=== PATIENT | female | born 1955 | race Caucasian/White ===

== ENCOUNTER 2017-03-30 17:38 | Emergency (ER) | payer OTHER ==
[~2017-03-30] VITALS: Ht 162.6 cm; Wt 83.9 kg
--- NOTE | 2017-03-30 19:10 | EKG ---
[facility] [address] [facility] [place] [address] Signed Normal sinus rhythm Normal ECG No previous ECGs available Confirmed by CRISTIAN MIR MD ([id number]) on 03/30/2017 7:09:50 PM Electronically Signed By: CRISTIAN MIR MD 03/30/171909 PATIENT NAME: MALINA MCDANIEL Electrocardiogram DATE OF : 51 PHYSICIAN: CRISTIAN MIR MD REPORT #: [id number] REPORT IS CONFIDENTIAL AND NOT TO BE RELEASED WITHOUT AUTHORIZATION
== END 2017-03-31 04:25 | disposition home or self-care (01) ==
LOC: ED 17:38
DX: D64.9 Anemia, unspecified (principal); D61.818 Other pancytopenia; F17.200 Nicotine dependence, unspecified, uncomplicated; Z90.49 Acquired absence of other specified parts of digestive tract; Z79.899 Other long term (current) drug therapy
CPT/HCPCS: 36430; 71020; 80053; 82607; 82728; 82746; 83540; 83615; 84466; 84484; 85025; 85045; 85384; 85610; 85730; 86850; 86900; 86901; 86920; 93005; 93010; 96374; 96376; 99284; P9016

== ENCOUNTER 2019-07-19 09:54 | Emergency (ER) | payer MEDICARE, OTHER ==
[~2019-07-19] VITALS: Ht 162.6 cm; Wt 63.5 kg
[~2019-07-19 09:54] MED LIST: ACYCLOVIR800 MG PO; CALCIUM500 MG PO; COREG6.25 MG PO; EFFER-K 20 MEQ20 MEQ PO; IMVEXXY4 MCG VAGINAL; MULTI VITAMIN1 EACH PO; OMEGA 3 1,0001 EACH PO; TORSEMIDE10 MG PO; VITAMIN B COMP1 EACH PO
[2019-07-19] MEDS ORDERED: CARVEDILOL6.25 MG PO (10:09)
[2019-07-19] MEDS ORDERED: CRESTOR5 MG PO (10:10)
[2019-07-19] MEDS ORDERED: IMVEXXY4 MCG VG (10:10)
[2019-07-19] MEDS ORDERED: VENTOLIN HFA18 GM (10:11)
[2019-07-19] MEDS ORDERED: VALIUM5 MG PO (13:46)
--- NOTE | 2019-07-19 17:58 | EKG ---
[facility] [address] [facility] [place] [address] Signed Sinus bradycardia T wave abnormality, consider inferior ischemia Abnormal ECG When compared with ECG of 30-MAR-2017 18:21, Vent. rate has decreased BY 43 BPM Inverted T waves have replaced nonspecific T wave abnormality in Inferior leads Nonspecific T wave abnormality now evident in Lateral leads Confirmed by ONEL GUALLPA MD ([id number]) on 07/19/2019 5:58:33 PM Electronically Signed By: ONEL GUALLPA MD 07/19/19 1758 PATIENT NAME: MALINA MCDANIEL Electrocardiogram DATE OF : 51 PHYSICIAN: ONEL GUALLPA MD REPORT #: [id number] REPORT IS CONFIDENTIAL AND NOT TO BE RELEASED WITHOUT AUTHORIZATION
== END 2019-07-19 14:24 | disposition home or self-care (01) ==
LOC: ED 09:54
DX: R42 Dizziness and giddiness (principal); J06.9 Acute upper respiratory infection, unspecified; Z88.8 Allergy status to other drugs, medicaments and biological substances; Z79.899 Other long term (current) drug therapy
CPT/HCPCS: 80053; 85025; 93005; 93010; 96374; 99284-25; J3360; J7040

== ENCOUNTER 2020-11-24 08:24 | Emergency (ER) | payer MEDICARE, OTHER ==
[~2020-11-24] VITALS: Ht 162.6 cm; Wt 63.5 kg
[~2020-11-24 08:24] MED LIST changes: +CARVEDILOL6.25 MG PO; +CRESTOR5 MG PO; +IMVEXXY4 MCG VG; +VALIUM5 MG PO; +VENTOLIN HFA18 GM
[2020-11-24] MEDS ORDERED: ACYCLOVIR800 MG PO (08:38)
--- NOTE | 2020-11-24 12:03 | EKG ---
[facility] [address] [facility] [place] [address] Signed Normal sinus rhythm Low voltage QRS Borderline ECG When compared with ECG of 19-JUL-2019 10:42, Vent. rate has increased BY 41 BPM T wave inversion no longer evident in Inferior leads Nonspecific T wave abnormality no longer evident in Lateral leads Confirmed by ONEL GUALLPA MD ([id number]) on 11/24/2020 12:03:00 PM Electronically Signed By: ONEL GUALLPA MD 11/24/20 1203 PATIENT NAME: MALINA MCDANIEL Electrocardiogram DATE OF : 51 PHYSICIAN: ONEL GUALLPA MD REPORT #: [id number] REPORT IS CONFIDENTIAL AND NOT TO BE RELEASED WITHOUT AUTHORIZATION
== END 2020-11-24 14:25 | disposition home or self-care (01) ==
LOC: ED 08:24
DX: D72.829 Elevated white blood cell count, unspecified (principal); R07.89 Other chest pain; F17.210 Nicotine dependence, cigarettes, uncomplicated; Z88.8 Allergy status to other drugs, medicaments and biological substances; Z79.899 Other long term (current) drug therapy
CPT/HCPCS: 36415; 71045; 80053; 80500; 83735; 84484; 85025; 93005; 93010; 99285-25; 99406

== ENCOUNTER 2024-04-03 08:30 | Day surgery (SDC) | payer MEDICARE, OTHER ==
[2024-04-01 08:21] VITALS: BP 132/87
[~2024-04-03] VITALS: Ht 162.6 cm; Wt 63.6 kg
[~2024-04-03 08:30] MED LIST changes: +B COMPLEX1 EACH PO; +FIBER0.52 GM PO; +HYDROCODON-ACE1 EAC8 PO; +IBLOOD GLUCOSE TEST STRIP 1 EA TEST VI PRN; +LACTATED RINGER'S 1,000 ML IV SCH; +LIDOCAINE HCL 1% 5 ML SDV INJ ONE; +PRESERVISION A1 EAC5 PO; +VENTOLIN HFA18 GM INH; -VITAMIN B COMP1 EACH PO; +VITAMIN D350 MC3 PO; +propofoL 200 MG/20 ML VIAL ONE
[2024-04-03 08:41] VITALS: BP 132/85
[2024-04-03] MEDS ORDERED: LACTATED RINGER'S 1,000 ML IV ONE (10:29)
[2024-04-03 11:31] VITALS: BP 129/88
--- NOTE | 2024-04-03 12:07 | NUR ---
04/03/24 1207 Katie Davison 1038- PT ARRIVES TO THE PACU ON LL SIDE WITH ORAL AND NASAL AIRWAY IN PLACE AND 10L VIA MASK. RESP EVEN AND UNLABORED. PT NOT REACTIVE TO VERBAL AND TACTILE STILUMLI. ABDOMEN IS SOFT AND NONDISTENEDED. ALL MONITORS PUT IN PLACE. 1045- PT WAKES TO TACTILE STIMULI AND OPENS EYES. PT HEAD RAISES OFF OF PILLOW. ORAL AND NASAL AIRWAY REMOVED AND O2 TURNED OFF. PT PASSING SMALL AMOUNTS OF GAS AND ENCOURAGED TO CONTINUE TO PASS GAS. PT REORIENTED TO PACU. PT HAS A WET COUGH. 1056- PT O2 SATS IN HIGH 80'S. INCENTIVE SPIROMETER ENCOURAGED AND EDUCATION PROVIDED. HOB INCREASED. 1103- NC APPLIED WITH 2L O2 WITH THE CONTINUOUS WET COUGH. PT REPORTED HAVING A CONSISTENT COUGH PRIOR TO PROCEDURE. 02 SATS INCREASED TO LOW 90'S. 1109- PT TURNED DOWN TO 1L VIA NC. COUGH IS NOW PRODUCTIVE. 1120- PT IS GIVEN WATER. LUNGS ARE DIMINISHED BILATERALLY WITH A SLIGHT WHEEZE NOTICED AT THE END OF EXHALATION. NO CRACKLES HEARD. 1122- O2 TURNED OFF. DC INFORMATION GIVEN. PT TOLERATING LIQUIDS WELL. NO QUESTIONS OR CONCERNS AT THIS TIME. 1130- VSS. ALL MONITORS REMOVED. PT GETTING DRESSED INDEPENDENTLY. IV REMOVED. NO PAIN OR NAUSEA REPORTED WHEN ASKED. 1138-PT GAIT STABLE AND EVEN WHEN AMBULATING TO THE . ALL BELONGINGS WITH PT. NO QUESTIONS OR CONCERNS. PT ABLE TO AMBULATE TO CAR INDEPENDENTLY WITH NO ISSUES.
--- NOTE | 2024-04-04 07:30 | OR ---
[facility] [address] [place], [place] [address] Signed DATE OF OPERATION: 04/03/2024 SURGEON: Demetrio Garduno MD PREOPERATIVE DIAGNOSES: 1. Personal history of colonic polyps in 2010 at age 55. 2. Diverticulosis. 3. Internal hemorrhoids. 4. 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 POSTOPERATIVE DIAGNOSES: 1. Moderate perianal condyloma. 2. Minimal left-sided diverticulosis. 3. 7 mm sessile polyps at 65 cm in distal hepatic flexure. 4. 3 mm polyp at base of cecum. 5. 7 mm polyps x2 at 37 cm (left colon, snare, clips x3). 6. 5 mm polyp at 16 cm in distal sigmoid colon. 7. Minimal to moderate internal hemorrhoids. PROCEDURE: Colonoscopy with hot biopsy and snare polypectomy and application of clips x3. ESTIMATED BLOOD LOSS: None. INDICATIONS: Malina is a 68-year-old female asked to see me for followup colonoscopy. I had reviewed her records before she came to the office. Her fabric designer, Dr. Cadena, did her colonoscopy in 2010 at the age of 55. She had hyperplastic and tubular adenomatous polyps removed. I helped her in 2019 at age of 63. Again, she had hyperplastic and tubular adenomatous polyps removed. She had a little bit diverticulosis along with some internal hemorrhoids. She has been on the five year plan. She also reminded me that she has been through treatment for leukemia and had yojmb-utjegj-mkiw disease. She has had CMV and other issues as well. She also has COPD and osteoporosis and so forth. She was telling me that she had some itching and lumps around her anus. She said it often currie and itches. She tells me there is no family history of colon cancer or polyps. In the office, I gave her a pamphlet on colonoscopy. We had reviewed the nature of the test. There is risk including, but not limited to gas bloating, crampy abdominal pain, bleeding, perforation requiring surgery, and missed diagnosis. We also reviewed the written instructions for a bowel prep line by line. Electronically Signed By: DEMETRIO GARDUNO MD 04/04/24 0730 PATIENT NAME: MALINA MCDANIEL OPERATIVE REPORT DATE OF : 51 REPORT #: [id number] PHYSICIAN: DEMETRIO GARDUNO MD PCP: VALENCIA MONIQUE MD REPORT IS CONFIDENTIAL AND NOT TO BE RELEASED WITHOUT AUTHORIZATION [facility] [address] [place], [place] [address] Signed She also understands the need for monitored anesthesia care given her age, her frail nature, her COPD and her use of marijuana and so forth. She had expressed understanding and wished to proceed. PROCEDURE IN DETAIL: Malina was taken into our endoscopy suite and placed in the left lateral decubitus position. She was given monitored anesthesia care with propofol infusion per our nurse repair supervisor. A digital rectal exam was performed. Indeed she had circumferential multiple areas of condyloma. She had average sphincter tone. There were no masses internally. The adult colonoscope was introduced and advanced under direct visualization of the camera. She coughs quite a bit during the procedure, so we had to use some abdominal compression and just carefully and slowly worked our way to and fro until we made it into the cecum itself. Her prep was quite good. We could easily see the appendiceal orifice and ileocecal valve. We removed the 3 mm polyp from her cecum with the help of hot biopsy forceps. The scope was then slowly withdrawn. We took pictures throughout for photodocumentation. We used a hot biopsy forceps to remove the 7 cm sessile polyp at 65 cm on the distal hepatic flexure. As we withdrew the scope she indeed has some diverticula in the left and sigmoid colon. They were small to moderate in size, few in number and scattered about. We found two polyps back at 37 cm. They were both around 7 cm and sessile in nature. We removed both with the help of the snare and suctioned them through our scope. We used two clips on polyp number two to bring the mucosa back together and we used one clip on polyp number one and brought that mucosa back together as well. We then found a small 5 mm sessile polyp in the distal sigmoid colon at 16 cm. It was easily removed with a hot biopsy forceps. We saw other polypectomy scar sites in the sigmoid colon. Upon retroflexion of scope in the rectum, we could see she has minimal to moderate internal hemorrhoids. After this, the gas was suctioned out. The colonoscope removed. Malina tolerated the procedure quite well. RECOMMENDATIONS: I will see Malina back in my office in 7 to 14 days to review her results including discussion to include her anal condyloma. Demetrio Garduno MD ALB/DOUGL /[id number] Electronically Signed By: DEMETRIO GARDUNO MD 04/04/24 0730 PATIENT NAME: MALINA MCDANIEL OPERATIVE REPORT DATE OF : 51 REPORT #: [id number] PHYSICIAN: DEMETRIO GARDUNO MD PCP: VALENCIA MONIQUE MD REPORT IS CONFIDENTIAL AND NOT TO BE RELEASED WITHOUT AUTHORIZATION [address] [place], [place] [address] Signed cc: Dr. Valencia Garduno MD Copies: DEMETRIO GARDUNO MD ~ Electronically Signed By: DEMETRIO GARDUNO MD 04/04/24 0730 PATIENT NAME: MALINA MCDANIEL OPERATIVE REPORT DATE OF : 51 REPORT #: [id number] PHYSICIAN: DEMETRIO GARDUNO MD PCP: VALENCIA MONIQUE MD REPORT IS CONFIDENTIAL AND NOT TO BE RELEASED WITHOUT AUTHORIZATION
--- NOTE | 2024-04-08 18:34 | PATH ---
[facility] [address] [facility] [place] [place] [address] Signed SPECIMEN(S): A HEPATIC FLEXURE POLYP, 65 CM SPECIMEN(S): B CECUM POLYP SPECIMEN(S): C LEFT COLON POLYPS, 37 CM SPECIMEN(S): D DISTAL SIGMOID POLYP, 16 CM SPECIMEN SOURCE: A. HEPATIC FLEXURE POLYP, 65 CM B. CECUM POLYP C. LEFT COLON POLYPS, 37 CM D. DISTAL SIGMOID POLYP, 16 CM CLINICAL HISTORY: Mblhx-lb-kyar disease, personal history colon polyps, diverticulosis, internal hemorrhoids/multiple polyps. Additional pre-op Dx: Anal condyloma. FINAL PATHOLOGIC DIAGNOSIS: A. Hepatic flexure polyp at 65 cm: - Tubular adenoma (multiple fragments). B. Cecum polyp: - Tubular adenoma (one fragment). - Serrated polyp/adenoma (one fragment). C. Left colon polyps at 37 cm: - Tubular adenoma (multiple fragments). - Polypoid colonic mucosa with submucosal adipose tissue suspicious for submucosal lipoma. D. Distal sigmoid polyp at 16 cm: - Hyperplastic polyp (two fragments). JVR:kimberly MICROSCOPIC EXAMINATION: Histologic sections of all submitted blocks are examined by light microscopy. These findings, together with the gross examination, support the pathologic diagnosis. GROSS DESCRIPTION: A. The specimen, labeled and designated "Kennedy, hepatic flexure polyp, 65 cm," is received in formalin and consists of four perry soft tissue fragments, ranging from 0.2-0.3 cm. Entirely submitted in (A1). B. The specimen, labeled and designated "Kennedy, cecum polyp," is received in formalin and consists of two perry soft tissue fragments, ranging from 0.1-0.2 PATIENT NAME: MALINA KENNEDY PATHOLOGY DATE OF : 51 REPORT #: [id number] PHYSICIAN: [facility] PCP: BRIONNA MONIQUE MD REPORT IS CONFIDENTIAL AND NOT TO BE RELEASED WITHOUT AUTHORIZATION [facility] [address] [place], [place] [address] Signed cm. Entirely submitted in (B1). C. The specimen, labeled and designated "Brent, left colon polyps, 37 cm," is received in formalin and consists of seven perry soft tissue fragments, ranging from 0.3-1.2 cm. Entirely submitted in (C1). D. The specimen, labeled and designated "Brent, distal sigmoid polyp, 16 cm," is received in formalin and consists of two perry soft tissue fragments, ranging from 0.2-0.3 cm. Entirely submitted in (D1). VB (under the direct supervision of a pathologist) The Gross Description was prepared using a voice recognition system. The report was reviewed for accuracy; however, sound-alike word errors, addition and/or deletions may occur. If there is any question about this report, please contact Client Services. PERFORMING LABORATORY: Technical component was performed by [facility], [address] [place] [id number] (CLIA# [id number]). Professional interpretation was performed by [facility] - [facility], [address] [place] [id number] (CLIA#: [id number]). Diagnostician: Hawk Wang MD Pathologist Electronically Signed 04/08/2024 Copies: ~ PATIENT NAME: MALINA KENNEDY PATHOLOGY DATE OF : 51 REPORT #: [id number] PHYSICIAN: [facility] PCP: BRIONNA MONIQUE MD REPORT IS CONFIDENTIAL AND NOT TO BE RELEASED WITHOUT AUTHORIZATION
== END 2024-04-03 11:38 | disposition home or self-care (01) ==
LOC: DS 08:30
PROVIDERS: ATTEND Colon & Rectal Surgery
PROC: 0DBL8ZZ Excision of Transverse Colon, Via Natural or Artificial Opening Endoscopic (ICD-10-PCS; 2024-04-03)
PROC: 0DBN8ZZ Excision of Sigmoid Colon, Via Natural or Artificial Opening Endoscopic (ICD-10-PCS; 2024-04-03)
PROC: 0DBG8ZZ Excision of Left Large Intestine, Via Natural or Artificial Opening Endoscopic (ICD-10-PCS; 2024-04-03)
PROC: 0DBH8ZZ Excision of Cecum, Via Natural or Artificial Opening Endoscopic (ICD-10-PCS; principal; 2024-04-03 09:45)
DX: Z12.11 Encounter for screening for malignant neoplasm of colon (principal); A63.0 Anogenital (venereal) warts; D12.0 Benign neoplasm of cecum; D12.4 Benign neoplasm of descending colon; D12.3 Benign neoplasm of transverse colon; K63.5 Polyp of colon; K57.30 Diverticulosis of large intestine without perforation or abscess without bleeding; K64.8 Other hemorrhoids; C92.00 Acute myeloblastic leukemia, not having achieved remission; I10 Essential (primary) hypertension; J44.9 Chronic obstructive pulmonary disease, unspecified; E78.5 Hyperlipidemia, unspecified; M81.0 Age-related osteoporosis without current pathological fracture; F17.210 Nicotine dependence, cigarettes, uncomplicated; Z86.0101 Personal history of adenomatous and serrated colon polyps; Z94.81 Bone marrow transplant status; Z79.899 Other long term (current) drug therapy; Z88.8 Allergy status to other drugs, medicaments and biological substances; Z90.49 Acquired absence of other specified parts of digestive tract
CPT/HCPCS: 00811; 88305; J2704; J7121

== ENCOUNTER 2024-08-03 03:15 | Emergency (ER) | payer MEDICARE, OTHER ==
[~2024-08-03] VITALS: Ht 162.6 cm; Wt 69.9 kg
[~2024-08-03 03:15] MED LIST changes: -CALCIUM500 MG PO; +CITRACAL + D E1 EACH PO; -CRESTOR5 MG PO; -IBLOOD GLUCOSE TEST STRIP 1 EA TEST VI PRN; -LACTATED RINGER'S 1,000 ML IV SCH; -LIDOCAINE HCL 1% 5 ML SDV INJ ONE; +ROSUVASTATIN CAL5 MG PO; -propofoL 200 MG/20 ML VIAL ONE
[2024-08-03] MEDS ORDERED: KETOROLAC TROMETHAMINE 30 MG/ML VIAL IV ONE (03:30)
[2024-08-03] MEDS ORDERED: ondansetron HCL 4 MG/2 ML VIAL IV ONE (03:30)
[2024-08-03] MEDS ORDERED: LACTATED RINGER'S 1,000 ML IV ONE (03:30)
[2024-08-03 03:45] LABS: HEMOGLOBIN 13.4 g/dL (12.0-18.0); MCH 34.1 (27-36)
[2024-08-03 03:47] LABS: MCHC 33.6 g/dl (30-36); MCV 101.5 fl (81-99); PLATELET COUNT 235 K/uL (140-440); RBC 3.94 M/ul (4.3-5.7)
[2024-08-03 03:55] LABS: ALBUMIN 2.7 g/dL (3.4-5.0); ALBUMIN/GLOBULIN RATIO 0.66 (1.1-2.4); ANION GAP 13.3 (7-21); BUN/CREATININE RATIO 15.09 (6.0-28.6); CALCIUM 8.7 mg/dL (8.5-10.1); CREATININE, SERUM 1.06 mg/dL (0.55-1.02); POTASSIUM 3.3 mmol/L (3.5-5.1); PROTEIN, TOTAL 6.8 g/dL (6.4-8.2)
[2024-08-03] MEDS ORDERED: ACETAMINOPHEN 325 MG TAB PO ONE (04:00)
[2024-08-03 04:03] LABS: LYMPHOCYTES, MANUAL DIFF 13; MONOCYTES, MANUAL DIFF 7; NEUTROPHILS, MANUAL DIFF 78; OTHER, MANUAL DIFF 2
[2024-08-03 04:07] LABS: CORONAVIRUS COVID-19 AG NEGATIVE (NEGATIVE); INFLUENZA A AG NEGATIVE (NEGATIVE); INFLUENZA B AG NEGATIVE (NEGATIVE)
[2024-08-03] MEDS ORDERED: methylPREDNISolone 4 MG HOME.PACK PO ONE (05:15)
[2024-08-03] MEDS ORDERED: INHALER, ASSIST DEVICES 1 EACH SPACER MISC ONE (05:15)
[2024-08-03] MEDS ORDERED: ALBUTEROL SULFATE 8 GM HOME.PACK INH ONE (05:15)
[2024-08-03] MEDS ORDERED: AZITHROMYCIN 250 MG HOME.PACK PO ONE (05:15)
[2024-08-03 05:27] VITALS: BP 110/67
== END 2024-08-03 05:29 | disposition home or self-care (01) ==
LOC: ED 03:15
PROVIDERS: Family Medicine
DX: J44.1 Chronic obstructive pulmonary disease with (acute) exacerbation (principal); B34.9 Viral infection, unspecified; F17.200 Nicotine dependence, unspecified, uncomplicated; Z85.6 Personal history of leukemia; Z94.81 Bone marrow transplant status; Z88.8 Allergy status to other drugs, medicaments and biological substances; Z79.899 Other long term (current) drug therapy
CPT/HCPCS: 36415; 80053; 85025; 94640; 94664; 96374; 96375; 99285-25; A9270; J1885; J2405; J7121

== ENCOUNTER 2024-08-03 13:15 | Inpatient (IN) | payer MEDICARE, OTHER ==
[~2024-08-03] VITALS: Ht 162.6 cm; Wt 71.9 kg
[2024-08-03] VITALS (11 sets, daily range): BP systolic 97–130; BP diastolic 52–88
--- OUTSIDE RECORDS SUMMARY | 2024-08-03 13:22 | XMS ---
PreManage Notification: MALINA MCDANIEL Security [employer]er Events No recent Security Events currently on file CRITERIA MET - [facility] - 2 Visits in 30 Days CARE PROVIDERS BRIONNA MONIQUE [facility] Current PHONE: [phone] CRISTIAN MIR Internal Medicine Current PHONE: Unknown Jessie has no Care Guidelines for this patient. Michael VISIT COUNT (12 MO.) 2 [facility] TOTAL 2 NOTE: Visits indicate total known visits. ED/UCC VISIT TRACKING (12 MO.) 08/03/2024 13:15 [facility] TYPE: Emergency COMPLAINT: - SHORT OF BREATH 08/03/2024 03:16 [facility] [place] TYPE: Emergency COMPLAINT: - MED INPATIENT VISIT TRACKING (12 MO.) No inpatient visits to display in this time frame [email or web address]
[2024-08-03] MEDS ORDERED: CEFTRIAXONE/SODIUM CHLORIDE 2 GM/100 ML PIGGYBACK IV ONE (13:45)
[2024-08-03] MEDS ORDERED: SODIUM CHLORIDE 0.9% 1,000 ML IV ONE ×3 (13:45→16:00)
[2024-08-03 13:55] LABS: HEMATOCRIT 39.4 % (35.0-50.0); HEMOGLOBIN 13.1 g/dL (12.0-18.0); MCH 33.8 (27-36); MCHC 33.3 g/dl (30-36); MCV 101.6 fl (81-99); PLATELET COUNT 221 K/uL (140-440); RBC 3.88 M/ul (4.3-5.7)
[2024-08-03 14:14] LABS: BANDS, MANUAL DIFF 2; LYMPHOCYTES, MANUAL DIFF 8; MONOCYTES, MANUAL DIFF 8; NEUTROPHILS, MANUAL DIFF 82
[2024-08-03 14:16] LABS: ALBUMIN 2.5 g/dL (3.4-5.0); ALBUMIN/GLOBULIN RATIO 0.61 (1.1-2.4); ANION GAP 16.2 (7-21); BILIRUBIN, TOTAL 0.9 ng/dL (0.2-1.0); BUN/CREATININE RATIO 13.73 (6.0-28.6); CALCIUM 8.5 mg/dL (8.5-10.1); CREATININE, SERUM 1.82 mg/dL (0.55-1.02); LACTIC ACID, BLOOD 2.4 mmol/L (0.4-2.0); POTASSIUM 3.2 mmol/L (3.5-5.1); PROTEIN, TOTAL 6.6 g/dL (6.4-8.2)
[2024-08-03] MEDS ORDERED: SODIUM CHLORIDE 0.9% 1,000 ML IV SCH ×2 (14:30→15:30)
[2024-08-03] MEDS ORDERED: AZITHROMYCIN/DEXTROSE 500 MG/250 ML PIGGYBACK IV ONE (14:30)
[2024-08-03] MEDS ORDERED: ACETAMINOPHEN 500 MG TAB PO ONE (14:45)
[2024-08-03] MEDS ORDERED: ACETAMINOPHEN 325 MG TAB PO PRN (15:30)
[2024-08-03] MEDS ORDERED: ondansetron HCL 4 MG/2 ML VIAL IV PRN (15:30)
[2024-08-03] MEDS ORDERED: NOREPINEPHRINE BITARTRATE 250 ML IV SCH (16:00)
[2024-08-03] MEDS ORDERED: LIDOCAINE 2% VISCOUS 6 ML SYR TOP ONE (16:15)
[2024-08-03 16:33] LABS: LACTIC ACID, BLOOD 2.4 mmol/L (0.4-2.0)
[2024-08-03 16:40] LABS: BILIRUBIN, URINE POSITIVE (negative); BLOOD/HGB, URINE NEGATIVE (Negative); KETONE, URINE TRACE (Negative); LEUK ESTERASE, URINE NEGATIVE (negative); NITRITE, URINE NEGATIVE (negative)
[2024-08-03 16:46] LABS: EPITHELIAL CELLS, URINE SQUAMOUS 1+ /lpf (0-1+)
[2024-08-03 16:47] LABS: BACTERIA, URINE RARE /hpf (negative); CASTS, URINE HYALINE 1+ \\lpf; COLLECTION TYPE, URINE CLEAN CATCH; CRYSTALS, URINE NONE SEEN (0-1+); RED BLOOD CELLS, URINE 0-1 /hpf (0-5); REFLEX CULTURE, URINE No (No); WHITE BLOOD CELLS, URINE 0-1 /HPF (0-5)
--- NOTE | 2024-08-03 17:00 | NUR ---
PT ARRIVES TO FLOOR VIA STRETCHER BY ED RN - PT ALERT AND ORIENTED SITTING UP IN BED. SINUS TACH ON MONITOR WITH ADEQUATE BP WITH LEVOPHED INFUSING AT 10MCG/KG/MIN INTO RIGHT UPPER ARM US GUIDED SITE. SPO2 STABLE ON ROOM AIR, LUNG SOUNDS COURSE WITH MOIST COUGH. LEVI CATH OUTPUT INADEQUATE FOR THE HOUR AND CONCENTRATED. MAINTENENCE IVF INTO LEFT WRIST SITE. PT ON PHONE WITH DAUGHTER UPDATING ON STATUS. DENIES PAIN OR NAUSEA. CALL LIGHT IN REACH.
[2024-08-03] MEDS ORDERED: POTASSIUM CHLORIDE 40 MEQ,LIDOCAINE HCL 1% 40 MG in DEXTROSE 5% 250 ML IV ONE (17:45)
--- NOTE | 2024-08-03 18:34 | NUR ---
RT IN ROOM TO ASSESS
[2024-08-03] MEDS ORDERED: ALBUTEROL SULFATE 0.083% 3 ML VIAL INH PRN (19:00)
[2024-08-03] MEDS ORDERED: POTASSIUM CHLORIDE 10 MEQ/100 ML BAG IV SCH (19:00)
--- NOTE | 2024-08-03 19:13 | NUR ---
RN IN ROOM TO RESPOND TO CALL LIGHT - PT IN TEARS R/T K+ INFUSION BURNING AT IV SITE. IV PUMP SET UP CHANGED TO DILUTE WITH IVF FURTHER, PT STILL UNABLE TO TOLERATE INFUSION. REPORT GIVEN TO NIGHT RN FOR FURTHER FOLLOW UP.
--- NOTE | 2024-08-03 20:00 | NUR ---
REPORT RECIVED FROM [facility] SHIFT RN. PATIENT RESTING IN BED AT THIS TIME. PATIENT ON LEVOPHED GTT. ELVI CATHETER PRESENT. PATIENT CALLS APPROPRIATELY. CALL LIGHT IN REACH.
[2024-08-03 20:15] LABS: ANION GAP 15.4 (7-21); BUN/CREATININE RATIO 16.98 (6.0-28.6); CALCIUM 7.8 mg/dL (8.5-10.1); CREATININE, SERUM 1.59 mg/dL (0.55-1.02); POTASSIUM 3.4 mmol/L (3.5-5.1)
[2024-08-03] MEDS ORDERED: POTASSIUM CHLORIDE 10 MEQ TABCR PO ONE (20:15)
--- NOTE | 2024-08-03 21:00 | NUR ---
PATIENT ASSESSMENT COMPLETED. PATIENT BREATH SOUNDS CLEAR AND SOME FINE CRACKLES NOTED AT TIMES. IMPROVED WITH COUGH. PATIENT ON RA. RR EVEN AND UNLABORED. PATIENT NOTED TO USE PURSED LIP BREATH WITH ACTIVITY IN THE BED. APTIENT REPORTS SHE HAS COPD AND USES AND INHALER AT HOME WHEN NEEDED. PATIENT REFUSED AT THIS TIME. PATIENT UP TO THE BEDSIDE CAMMODE D/T URGE FOR BM. NO BM PRESENT. PATIEN BACK TO BED. PATIENT TOELRATED ACTIVITY WELL. PATIENT REQUESTED PRN PAIN MEDICATION FOR BACK PAIN. PATIENT RESTING ON SIDE. PATIENT EDUCATED ABOUT HER IV TO CALL IF ANY PAIN NOTED. NO OTHER NEEDS AT THIS TIME. WILL TITRATE LEVOPHED GTT POSSIBLE WITH PATIETNS VITALS SIGNS. CALL LIGHT IN REACH. LIGHTS TURNED DOWN. TV ON FOR COMFORT PER PATIENT.
[2024-08-03] MEDS ORDERED: LACTATED RINGER'S 1,000 ML IV ONE (22:15)
[2024-08-03] MEDS ORDERED: TRAMADOL HCL 50 MG TAB PO PRN (22:15)
--- NOTE | 2024-08-03 22:30 | NUR ---
PATIENTS OXYGEN DROPPED TO 85% ON RA WITH SLEEP. OXYGEN 2L PLACED ON PATIET. SPO2 INCREASED TO 95% WITH REST. CALL LIGHT IN REACH.
--- NOTE | 2024-08-03 23:15 | NUR ---
MD ORDERED ADDITIONAL BOLUS FOR CONTINUED ELEVATED LACTIC AND DECREASED URINE. PATIENT RESTING ON RIGHT SIDE AT THIS TIME. CALL LIGHT IN REACH.
--- NOTE | 2024-08-03 23:54 | NUR ---
PATIENT REPORTS CONGESTION IN HER NOSE. 2L NC REMOVED AND REPLACED BY AN OXY MASK WITH 2L NC. PATIENT ASSISTED TO POSITION FOR COMFORT. TITRATED LEVO PER FLOW SHEET. PATIENT REQUEST NEB TREATMENT. RT NOTIFIED.
[2024-08-04] VITALS (30 sets, daily range): BP systolic 88–120; BP diastolic 55–103
--- NOTE | 2024-08-04 00:44 | NUR ---
PATIENT BACK IN BED. ASSISTED TO POSITION FOR COMFORT. PATIENT VS STABLE. TITRATED LEVO PER FLOW SHEET. PATIENT ONE 2L OXYMASK FOR SLEEP. IV SITES WNL X2. CALL LIGHT IN REACH.
--- NOTE | 2024-08-04 01:46 | NUR ---
PATIENT ASSISTED TO THE BSC A 1PA. PATIENT ABLE TO HAVE BM. PATIENT IS BACK IN BED RESTING. PATIENT DENIES ANY FURTHER NEEDS. CALL LIGHT IN REACH. IV INFUSING PER ORDER.
--- NOTE | 2024-08-04 02:15 | NUR ---
PATIENT SITTING UP TO EDGE OF BED TO EAT A SNACK. PATIENT IS GOOD SPIRITS. DENIED FEELING SOB. TOLERATING ROOM AIR WHILE AWAKE.
--- NOTE | 2024-08-04 02:34 | NUR ---
PATIENT BACK IN BED. 1L OXY MASK IN PLACE. PATIENT DENIED ANY NEEDS OR CONCERNS. IV SITES WNL X2. CALL LIGHT IN REACH.
--- NOTE | 2024-08-04 04:15 | NUR ---
PATIENT REQUEST PRN NEB TREATMENT. RT CALLED. PATIENT SITTING UP IN BED. CONTINUES TO HAVE LOOSE COUGH, NOT ABLE TO PRODUCE ANY SPUTUM AT THIS TIME. PATIENT LUNG SOUNDS ARE COARSE. TOLERATING ROOM AIR WHILE AWAKE. PATIENT REPORTS RETURN OF BACK PAIN AND GENERAL GI UPSET. PRN TYLENOL AND ZOFRAN PROVIDED. PATIENT DENIED FURTHER NEEDS. CALL LIGHT IN REACH.
[2024-08-04 05:18] LABS: BASOPHILS 0.1 % (0-2); HEMOGLOBIN 11.7 g/dL (12.0-18.0)
[2024-08-04 05:19] LABS: LYMPHOCYTES 12.7 % (24-44); MCHC 33.4 g/dl (30-36); MCV 101.9 fl (81-99); MONOCYTES 6.6 % (0-12); NEUTROPHILS 80.6 % (39-80); PLATELET COUNT 187 K/uL (140-440); RBC 3.44 M/ul (4.3-5.7)
[2024-08-04 05:34] LABS: ALBUMIN/GLOBULIN RATIO 0.54 (1.1-2.4); BILIRUBIN, TOTAL 0.2 ng/dL (0.2-1.0); BUN/CREATININE RATIO 20.49 (6.0-28.6); CALCIUM 7.7 mg/dL (8.5-10.1); CREATININE, SERUM 1.22 mg/dL (0.55-1.02); MAGNESIUM 1.4 mg/dL (1.8-2.4); PHOSPHORUS, INORGANIC 2.4 mg/dL (2.5-4.9); PROTEIN, TOTAL 5.7 g/dL (6.4-8.2)
--- NOTE | 2024-08-04 06:06 | NUR ---
PATIENT UPDATE PROVIDED TO
[2024-08-04] MEDS ORDERED: MAGNESIUM SULFATE 2 GM/50 ML BAG IV SCH (06:15)
--- NOTE | 2024-08-04 06:38 | NUR ---
PATIENT UP TO THE BSC. SMALL BM. PATIENT MOVES EASLIY. DENIED FEELING SOB WITH ACTIVITY. PATIENT BACK IN BED. CALL LIGHT IN REACH. ON ROOM AIR.
[2024-08-04] MEDS ORDERED: BUDESONIDE 0.5 MG/2 ML VIAL INH SCH (08:00)
[2024-08-04] MEDS ORDERED: ALBUTEROL/IPRATROPIUM 3 ML NEB INH SCH ×2 (08:00)
--- NOTE | 2024-08-04 08:20 | NUR ---
PT ASSISSTED UP TO CHAIR FOR BREAKFAST STANDBY ASSIST. NOT REQUIRING 02 WHILE AWAKE. DYSPNIC WITH AMBULATION - LUNG SOUNDS MUCH IMPROVED FROM YESTERDAY. . BP STABLE OFF LEVOPHED GTT, CONTINUING CLOSE BP MONITORING. PT REPORTS 4/10 BACK PAIN THAT IMPROVED AFTER PRN TYLENOL. ALSO C/O EPIGASTRIC STOMACH PAIN THAT "FEELS LIKE HUNGER PAINS", RELIEVED WITH ZOFRAN IN EARLIER SHIFT. CONCERN FOR NEED FOR PPI, MD AWARE. LEFT HAND IV VERY PAINFUL FOR PT, FLUSHES WELL AND SITE WNL. FLUIDS AND MAG MOVED TO RIGHT UPPER ARM SITE FOR PT COMFORT. PT REQUESTS NEW IV SITE, EDUCATION PROVIDED ON IV ACCESS, WILL CONTINUE TO MONITOR. URINE OUTPUT REMAINS LOW, MD AWARE, LEVI CATH IN PLACE FOR STRICT I/O.
[2024-08-04] MEDS ORDERED: ENOXAPARIN SODIUM 30 MG/0.3 ML SYR SUB-Q SCH (09:00)
[2024-08-04] MEDS ORDERED: AZITHROMYCIN 500 MG in DEXTROSE 5% 250 ML IV SCH (09:00)
[2024-08-04] MEDS ORDERED: ENOXAPARIN SODIUM 40 MG/0.4 ML SYR SUB-Q SCH (09:00)
[2024-08-04] MEDS ORDERED: CEFTRIAXONE/SODIUM CHLORIDE 2 GM/100 ML PIGGYBACK IV SCH (09:00)
--- NOTE | 2024-08-04 09:40 | NUR ---
PT REPORTS IMPROVED APPETITE THIS AM. URINE OUTPUT IMPROVING. WARM BLANKETS PROVIDED, FEET ELEVATED IN CHAIR. CALL LIGHT IN REACH, VS STABLE ON MONITOR.
[2024-08-04] MEDS ORDERED: PANTOPRAZOLE SODIUM 40 MG TABEC PO SCH (09:44)
--- NOTE | 2024-08-04 10:37 | NUR ---
PT ASSISSTED BACK TO BED TO REST PER PT REQUEST. EGG CRATE CUSHION APPLIED TO BED TO HELP RELEIVE PT BACK PAIN R/T BED. TYLENOL PRN ADMINISTERED. MD IN ROOM ROUNDING, PLAN OF CARE REVIEWED, PT DENIES QUESTIONS. BP REMAINS STABLE WITHOUT LEVOPHED. CALL LIGHT IN REACH.
--- NOTE | 2024-08-04 10:58 | NUR ---
RN IN ROOM TO RESPOND TO CALL LIGHT - PT REPORTS NAUSEA AND REQUESTS EMESIS BAG AND ZOFRAN. ADMINISTERED. PT RESTING ON SIDE, CALL LIGHT IN REACH. VS ON MONITOR STABLE.
[2024-08-04] MEDS ORDERED: PHARMACY RENAL DOSE ADJUSTMENT 1 DOSE MISC PO SCH (12:00)
--- NOTE | 2024-08-04 12:38 | NUR ---
MED REC COMPLETE
--- NOTE | 2024-08-04 12:45 | NUR ---
RN ROUNDING ON PT - UP IN CHAIR EATING LUNCH AND TALKING ON PHONE. VS STABLE ON MONITOR. PT C/O CONTINUED BACK PAIN, MID BACK, ACHE, TYLENOL DID NOT RELIEVE. HEAT PACK SUGGESTED, PROVIDED.
[2024-08-04] MEDS ORDERED: SOD PHOS MONO/SOD PHOS DIBAS 1 EACH PACKET PO ONE (13:00)
--- NOTE | 2024-08-04 13:10 | NUR ---
PT BACK TO BED WITH RN ASSISTANCE FOR LINE MANAGMENT. CALL LIGHT IN REACH.
--- NOTE | 2024-08-04 14:40 | NUR ---
PRN ULTRAM ADMINISTERED FOR 01/02 BACK PAIN - PT REMAINS RESTLESS IN BED AND CHAIR TO FIND RELIEF FROM BACK PAIN. HEAT PACK HELPED "SOME".
--- NOTE | 2024-08-04 17:45 | NUR ---
PT UP TO CHAIR FOR DINNER. PT STATES SHE IS TOO FULL TO EAT BUT AGREES TO A PROTIEN SHAKE. BACK PAIN REDUCED TO 2/10 WITH ULTRAM. HR REMAINS ELEVATED THROUGHOUT DAY - MD UPDATED. HOME COREG DOSE ORDERED, FIRST DOSE TO START NOW.
[2024-08-04] MEDS ORDERED: carvediloL 6.25 MG TAB ONE (17:48)
--- NOTE | 2024-08-04 20:29 | NUR ---
PATIENT BACK TO BED AFTER LARGE LOOSE BM IN COMMODE. CALL LIGHT IN REACH.
[2024-08-04] MEDS ORDERED: carvediloL 6.25 MG TAB PO SCH (21:00)
--- NOTE | 2024-08-04 22:00 | NUR ---
PATIENT USED CALL LIGHT FOR REQUESTS. THIS RN IN ROOM AND PATIENT CRYING STATING SHE HAS NEEDS AND FELT SHE WAS NOT BEING ATTENDING TO. ASSURED PATIENT THAT SHE TOO IS A PRIORITY AND WE ARE MONITORING HER CONTINUOUSLY. GIVEN FRESH WATER AND HAND LOG GRADER. CALL LIGHT IN REACH.
--- NOTE | 2024-08-04 22:26 | NUR ---
PATIENT'S O2 SAT 88% ON RA; PLACED ON 2L NC WITH IMPROVEMENT TO 93%. PATIENT HAD A SMALL INCONTINENCE OF STOOL WHEN COUGHING. CLEANED HERSELF; REFUSED THIS RN ASSISTING WITH WIPING. NEW CHUX PLACED. BRIEF PROVIDED WITH PAD.
--- NOTE | 2024-08-04 23:12 | NUR ---
PATIENT INCONTINENT OF SMALL AMOUNT OF STOOL WHILE COUGHING. UNDERPAD CHANGED. PATIENT WAS ABLE TO CLEAN HERSELF UP. DENIES OTHER NEEDS OR CONCERNS AT THIS TIME.
[2024-08-05] VITALS (19 sets, daily range): BP systolic 97–139; BP diastolic 56–92
--- NOTE | 2024-08-05 01:18 | NUR ---
PATIENT UP TO BSC A SBA. PATIENT HAD LOOSE BM. PATIENT COMPLETED SELF CARE IND. PATIENT IS BACK IN BED RESTING. PATIET PLACED ON 2L VIA OXYMASK AND NC REMOVED PER PATIENT REQUEST. PATIENT REPORTS A DE LEON AND RATES THE PAIN 8/10, PRN MEDICATION GIVEN PER ORDER-SEE EMAR. PATIENT DENIES ANY FURTHER NEEDS. CALL LIGHT IN REACH. IV INFUSING PER ORDER.
--- NOTE | 2024-08-05 02:05 | NUR ---
PATIENT USES CALL LIGHT TO REPORT SHE COUGHED AND HAD INCONTINENCE OF HER BOWELS FOR SMALL AMOUNT OF STOOL. ASSISTED WITH CLEANING, NEW CHUX PLACED. CALL LIGHT IN REACH. PATIENT ON 2L OXYMASK-PREFERS MASK TO NC.
--- NOTE | 2024-08-05 02:33 | NUR ---
PATIENT UP TO BSC TO HAVE A MEDIUM SIZE LOOSE STOOL. BACK TO BED. DENIES OTHER NEEDS. CALL LIGHT IN REACH.
--- NOTE | 2024-08-05 03:19 | NUR ---
PATIENT USES CALL LIGHT TO REQUEST ASSISTANCE UP TO CHAIR. SBA TO MANAGE CORDS AND LINES. BLE ELEVATED WHILE IN CHAIR. WARM BLANKET PROVIDED. CALL LIGHT AND PERSONAL ITEMS IN REACH. ENCOURAGED REST.
--- NOTE | 2024-08-05 04:17 | NUR ---
ROUNDING FINDS PATIENT AWAKE AND WISHING TO RETURN TO BED. ASSESSMENT COMPLETED. PATIENT'S O2 SAT WAS 98% ON 2L OXYMASK, ATTEMPTED TO WEAN AND PATIENT DESATTED TO 86%. PATIENT PREFERS MASK TO NC; OXYMASK IN PLACE WITH 2L, IMPROVEMENT IN O2 SAT TO 93%. PATIENT REPORTS SHE NEVER SLEEPS WHEN IN THE HOSPITAL. NOTABLY, SHE HAS NOT BEEN FOUND SLEEPING MUCH TONIGHT. ASSISTED WITH COVERS IN BED. CALL LIGHT IN REACH.
--- NOTE | 2024-08-05 04:45 | NUR ---
PATIENT RESTING IN BED WITH EYES CLOSED. RESPIRATIONS EVEN AND UNLABORED. SPO2 NOTED AT 98%, O2 FLOW REDUCED TO 1L OXYMASK WITH SPO2 AT 95%.
[2024-08-05 05:50] LABS: HEMATOCRIT 34.6 % (35.0-50.0); HEMOGLOBIN 11.3 g/dL (12.0-18.0); MCHC 32.7 g/dl (30-36); PLATELET COUNT 216 K/uL (140-440); RBC 3.33 M/ul (4.3-5.7); RDW 13.7 (10.5-15.0)
[2024-08-05 06:13] LABS: ALBUMIN 1.9 g/dL (3.4-5.0); ALBUMIN/GLOBULIN RATIO 0.48 (1.1-2.4); ANION GAP 12.6 (7-21); BILIRUBIN, TOTAL 0.3 ng/dL (0.2-1.0); BUN/CREATININE RATIO 22.22 (6.0-28.6); CALCIUM 8.1 mg/dL (8.5-10.1); CREATININE, SERUM 0.9 mg/dL (0.55-1.02); MAGNESIUM 2.3 mg/dL (1.8-2.4); PHOSPHORUS, INORGANIC 3.1 mg/dL (2.5-4.9); POTASSIUM 4.6 mmol/L (3.5-5.1); PROTEIN, TOTAL 5.9 g/dL (6.4-8.2)
[2024-08-05 06:19] LABS: BANDS, MANUAL DIFF 4; LYMPHOCYTES, MANUAL DIFF 15; MONOCYTES, MANUAL DIFF 1; NEUTROPHILS, MANUAL DIFF 80
--- NOTE | 2024-08-05 06:38 | NUR ---
PATIENT CALLED OUT FOR ANOTHER EPISODE OF COUGHING/INCONTINENCE OF SMALL AMOUNT OF LOOSE STOOL. GOWN CHANGED. PATIENT UP TO CHAIR. REQUESTS PRN BREATHING TREATMENT. PRN BREATHING TX GIVEN. CALL LIGHT IN REACH.
--- NOTE | 2024-08-05 06:55 | NUR ---
PATIENT REMAINS UP IN CHAIR. TEARFUL AND ENDORSES ANXIETY. BREATHING TX COMPLETE. PATIENT ON 1L OXYMASK. CALL LIGHT IN REACH .
[2024-08-05] MEDS ORDERED: IPRATROPIUM BROMIDE 2.5 ML VIAL INH SCH (08:00)
[2024-08-05] MEDS ORDERED: levalbuterol HCL 1.25 MG/0.5 ML VIAL INH SCH (08:00)
--- NOTE | 2024-08-05 08:00 | NUR ---
RN IN ROOM TO DELIVER BREAKFAST - PT SITTING UP IN CHAIR. PT NOTED TO BE TEARFULL, HR ELEVATED. RN IN ROOM TO LISTEN TO PT EXTENSIVELY - PT REPORTS ANXIETY, FEELING LOSS OF CONTROL R/T HOSPITALIZATION/SCARED AND DIARRHEA WHEN COUGHING, LACK OF SLEEP AND FEELING LONELY. PT REPORTS HOME COPING MECHANISMS ARE NIGHTLY THC, VISITING WITH FRIENDS. DENIES FEELING THE NEED OR CRAVING ETOH OR THC, DENIES WANTING NICOTINE PATCH AT THIS TIME. PT ENCOURAGED TO EXPRESS CONCERNS TO MD WHEN ROUNDING. EXTENSIVE EDUCATION PROVIDED ON MONITOR ALARMS, VALUES ON SCREEN, CURRENT LABS AND ASSESSMENT ALL TRENDING IN POSITIVE DIRECTION. PT REPORTS FEELING BETTER AFTER CONVERSATION. CALL LIGHT AND BREAKFAST ON TABLE.
[2024-08-05] MEDS ORDERED: carvediloL 6.25 MG TAB PO ONE (10:00)
--- NOTE | 2024-08-05 10:00 | NUR ---
RN IN ROOM ROUNDING WITH MD - PT EXPRESSESS CONCERN REGARDING ELEVATED HEART RATE, FEELING EMOTIONAL, ANXIETY AND LOOSE STOOL WITH COUGH. ALL QUESTIONS ANSWERED AND PT AGREES WITH PLAN OF CARE TODAY. PT REMAINS UP IN CHAIR AND NOT NEEDING 02 AT THIS TIME. CALL LIGHT IN REACH.
[2024-08-05] MEDS ORDERED: DIPHENOXYLATE/ATROPINE 1 EA TAB PO SCH (10:02)
[2024-08-05] MEDS ORDERED: LORazepam 1 MG TAB PO PRN (10:15)
--- NOTE | 2024-08-05 10:56 | NUR ---
AMITA BCUIO - PT TOLERATED WELL. WARM SOAP AND WASH RAGS USED TO CLEAN TEO AREA WELL. PT TOLERATED STANDING WELL, REPORTED SOB BUT SPO2 STABLE.
--- NOTE | 2024-08-05 11:28 | NUR ---
PT UPDATED OF TRANSFER TO M/S FLOOR. PT STATES UNDERSTANDING OF PLAN.
--- NOTE | 2024-08-05 12:15 | NUR ---
REPORT GIVEN TO VAMSI BENITO
--- NOTE | 2024-08-05 13:38 | NUR ---
PATIENT TALKING TO FRIENDS IN ROOM. PERSONAL HEALTH INFORMATION REVIEWED. PATIENT LIVES IN A HOUSE WITH ROOMMATE. PATIENT HAS ONE STEP TO GET INTO HOUSE. DENIES DIFFCULTY GETTING INTO THE HOUSE. WALKER AVAILABLE IF NEEDED. PATIENT DRIVES. PATIENT CAN GET A TAXI AT DISCHARGE OR WILL CALL A FRIEND. DOES NOT WEAR OXYGEN OR A CPAP. DENIES ANY DIFFCULTY PAYING UTILITIES OR OBTAINING FOOD. PATIENT DENIES ANY NEED FOR CM AT THIS TIME.
--- NOTE | 2024-08-05 14:00 | NUR ---
PATIENT RESTING IN RECLINER, REPORTS NO NEEDS AT THIS TIME. TALKED WITH HER ABOUT PLAN OF CARE FOR THE REST OF DAY AND TONIGHT, ALSO PLANS FOR SHOWER.
--- NOTE | 2024-08-05 14:47 | NUR ---
REFERRED BY THONG AGUSTIN WHO STATED PT HAD HAD A HARD DAY. PT SITTING UP IN CHAIR, CONVERSANT AND INTERACTIVE, LITTLE SIGN OF DISTRESS AT TIME OF VISIT. RENAL MEDICINE PHYSICIAN PROVIDED SUPPORTIVE PRESENCE, HOSPITALITY, PRAYER, FACILITATED INTERACTION WITH THERAPY ANIMAL. PT EXPRESSED GRATITUDE.
--- NOTE | 2024-08-05 15:44 | NUR ---
PATIENT UP TO SHOWER WITH THIS RN. PATIENT TOLERATED WELL, V/S STABLE AFTER. PATIENT HAS GUEST IN ROOM NOW. R.T. CALLED FOR PRN [place]. PATIENT ASSESSMENT DONE RESP. SMALL IMPROVEMENT OF AIR MOVEMENT IN LUNG LOBES THROUGHOUT. NO OTHER NEW CONCERNS PATIENT IS SMILING AND LAUGHING WITH THIS RN.
--- NOTE | 2024-08-05 17:29 | NUR ---
PATIENT TRANSFERED FROM CCU TO MED/SURG 1230, SHE HAS BEEN ALERT AND ORIENTED. SHE HAS BEEN COOPERATIVE [facility], SHOWERED THIS AFTERNOON WT THIS RN, SHE HAS BEEN SMILING AND JOKING WITH THIS RN, SHE IS HAPPY ABOUT THE IDEA OF [facility] AT HS TO HELP HER RELAX AND SLEEP TONIGHT. V/S HAS BEEN STABLE AND HEART RATE AT REST HAS BEEN 95-100/MIN AND WITH ACTIVITY HEART RATE CHECK AFTER SHOWER 115/MIN. PATIENT HAS HAD MULTIPLE VISITORS TODAY AND MILO THE THERAPY DOG [facility] HAS ROUNDED WITH PATIENT PERMISSION.
--- NOTE | 2024-08-05 19:10 | NUR ---
REPORT RECIEVED FROM VAMSI BENITO. pt SITTING IN THE CHAIR. pt WANTS TO GO BACK TO BED. pt WALKED BACK TO BED. NO OTHER NEEDS AT THIS TIME. CALL LIGHT WITHIN REACH. BOARD UPDATED.
--- NOTE | 2024-08-05 20:20 | NUR ---
ASSESSMENT AND VITAL SIGNS DONE. pt RESTING IN THE BED. pt DENIES ANY DIARRHEA. LUNG SOUNDS ARE CLEAR. MEDS ADMINISTERED. pt DENIES ANY NEEDS AT THIS TIME. CALL LIGHT WITHIN REACH.
[2024-08-05] MEDS ORDERED: carvediloL 6.25 MG TAB PO SCH (21:00)
--- NOTE | 2024-08-05 22:53 | NUR ---
pt RESTING IN THE BED. pt DENIES ANY NEEDS AT THIS TIME. CALL LIGHT WITHIN REACH.
[2024-08-06] VITALS (12 sets, daily range): BP systolic 104–134; BP diastolic 59–82
--- NOTE | 2024-08-06 02:08 | NUR ---
VITAL SIGNS DONE. pt RESTING IN THE BED. pt DENIES ANY NEEDS AT THIS TIME. CALL LIGHT WITHIN REACH.
--- NOTE | 2024-08-06 03:45 | NUR ---
pt RESTING IN THE BED WITH EYES CLOSED. RR EVEN AND UNLABORED. CALL LIGHT WITHIN REACH.
--- NOTE | 2024-08-06 04:43 | NUR ---
pt UP TO THE BR. pt BACK TO THE BED. pt C/O SOB. pt DESATTING TO 87%. 2L OXYMASK PLACED ON pt. pt NOW SATTING AT 91%. RT CALLED FOR A BREATHING TREATMENT. pt DENIES ANY OTHER NEEDS AT THIS TIME. CALL LIGHT WITHIN REACH.
[2024-08-06 05:37] LABS: HEMATOCRIT 31.1 % (35.0-50.0); HEMOGLOBIN 10.4 g/dL (12.0-18.0); MCH 34.1 (27-36); MCHC 33.4 g/dl (30-36); MCV 102.1 fl (81-99); PLATELET COUNT 193 K/uL (140-440); RBC 3.05 M/ul (4.3-5.7); RDW 13.4 (10.5-15.0)
[2024-08-06 05:46] LABS: ALBUMIN 1.7 g/dL (3.4-5.0); ALBUMIN/GLOBULIN RATIO 0.46 (1.1-2.4); ANION GAP 11.2 (7-21); BILIRUBIN, TOTAL 0.3 ng/dL (0.2-1.0); BUN/CREATININE RATIO 22.78 (6.0-28.6); CALCIUM 8.5 mg/dL (8.5-10.1); CREATININE, SERUM 0.79 mg/dL (0.55-1.02); POTASSIUM 4.2 mmol/L (3.5-5.1); PROTEIN, TOTAL 5.4 g/dL (6.4-8.2)
[2024-08-06 06:02] LABS: BANDS, MANUAL DIFF 1; EOSINOPHILS, MANUAL DIFF 2; LYMPHOCYTES, MANUAL DIFF 45; MONOCYTES, MANUAL DIFF 6; NEUTROPHILS, MANUAL DIFF 46
--- NOTE | 2024-08-06 07:36 | NUR ---
PT RESTING IN BED DOING NEB TREATMENT. RT IN ROOM. REPORT RECEIVED FROM PAYTON BENITO. CALL LIGHT WITHIN REACH.
--- NOTE | 2024-08-06 07:37 | NUR ---
PT RESTING IN BED DOING RESPIRATORY TREATMENT WITH RESPIRATORY THERAPIST IN ROOM. REPORT RECEIVED FROM PAYTON BENITO. CALL LIGHT WITHIN REACH.
--- NOTE | 2024-08-06 09:19 | NUR ---
Spoke with Kely. She denies needs and plans to dc to her home when she is medically ready. She lives with a roommate that works. She also works and plans on returning to work when she is released medically. She denies any needs. Per am meeting dc in 1-2 days.
--- NOTE | 2024-08-06 10:00 | NUR ---
PT RESTING IN BED AT THIS TIME. ASSESSMENT COMPLETE. PT HAS NO COMPLAINTS OR REQUESTS AT THIS TIME. CALL LIGHT WITHIN REACH.
--- NOTE | 2024-08-06 10:46 | NUR ---
VISITED DURING SPIRITUAL CARE ROUNDS. PT IN PHONE CONVERSATION WITH SUPPORT PERSON. DID NOT INTERRUPT. PROVIDED PRAYER.
[2024-08-06] MEDS ORDERED: FUROSEMIDE 20 MG TAB PO ONE (12:15)
--- NOTE | 2024-08-06 12:33 | NUR ---
PT SITTING UP IN HER CHAIR EATING LUNCH AND WATCHING TV. NO REQUESTS AT THIS TIME. CALL LIGHT WITHIN REACH.
--- NOTE | 2024-08-06 13:15 | NUR ---
AFTER VITALS WERE DONE PATIENT AND I WALKED ONE LAP AROUND MED SURG.
--- NOTE | 2024-08-06 13:40 | NUR ---
PT SITTING UP IN HER RECLINER WITH LEGS ELEVATED WATCHING TV. PT STATES SHE RECENTLY WENT FOR A WALK IN THE [place] WITH MANAGER BEAUTY ASSIST. PT STATED THAT SHE FEELS LIKE SHE IS IMPROVING, BUT STILL HAD SLIGHT SOB WITH AMBULATION. WARM BLANKET GIVEN TO PT. CALL LIGHT WITHIN REACH.
[2024-08-06] MEDS ORDERED: levalbuterol HCL 1.25 MG/0.5 ML VIAL INH SCH (14:00)
[2024-08-06] MEDS ORDERED: IPRATROPIUM BROMIDE 2.5 ML VIAL INH SCH (14:00)
--- NOTE | 2024-08-06 14:45 | NUR ---
PT SITTING UP IN CHAIR VISITING [facility] FRIEND. WATER REFRESHED. CALL LIGHT WITHIN REACH AND NO OTHER REQUESTS AT THIS TIME.
--- NOTE | 2024-08-06 15:55 | NUR ---
PT AMBULATED TO RESTROOM WITH SBA, TOLERATED WELL. FRIEND IN ROOM VISITING AND PLAYING CARDS WITH PT. CALL LIGHT WITHIN REACH, NO REQUESTS AT THIS TIME.
--- NOTE | 2024-08-06 17:48 | NUR ---
PT SITTING IN CHAIR, JUST FINISHED DINNER. NO REQUESTS AT THIS TIME. CALL LIGHT WITHIN REACH.
--- NOTE | 2024-08-06 19:05 | NUR ---
REPORT RECEIVED FROM TYE BENITO. pt RESTING IN THE BED. BOARD UPDATED. NO OTHER NEEDS AT THIS TIME. CALL LIGHT WITHIN REACH.
--- NOTE | 2024-08-06 20:20 | NUR ---
ASSESSMENT AND VITAL SIGNS DONE. SCHEDULED AND PRN MEDS ADMINISTERED. WATER REFRESHED. pt DENIES ANY NEEDS AT THIS TIME. CALL LIGHT WITHIN REACH. WHEEZES THROUGH OUT LUNGS.
--- NOTE | 2024-08-06 22:30 | NUR ---
pt RESTING IN THE BED WITH EYES CLOSED. RR EVEN AND UNLABORED. CALL LIGHT WITHIN REACH.
--- NOTE | 2024-08-06 22:52 | NUR ---
VERBAL ORDER TO RECEIVED FROM MD TO REMOVE TELE. REMOVED FROM pt. ORDER UPDATED.
--- NOTE | 2024-08-07 01:10 | NUR ---
pt RESTING IN THE BED WITH EYES CLOSED. RR EVEN AND UNLABORED. CALL LIGHT WITHIN REACH.
--- NOTE | 2024-08-07 03:15 | NUR ---
pt RESTING IN THE BED WITH EYES CLOSED. RR EVEN AND UNLABORED. CALL LIGHT WITHIN REACH.
--- NOTE | 2024-08-07 04:48 | NUR ---
pt RESTING IN THE BED WITH EYES CLOSED. RR EVEN AND UNLABORED. CALL LIGHT WITHIN REACH.
[2024-08-07 06:06] VITALS: BP 135/80
[2024-08-07 06:11] VITALS: BP 135/80
--- NOTE | 2024-08-07 07:45 | NUR ---
REPORT RECEIVED FROM PAYTON BENITO. PT RESTING IN BED WITH CALL LIGHT WITHIN REACH. NO REQUESTS AT THIS TIME.
--- NOTE | 2024-08-07 07:45 | NUR ---
Spoke with evens. She denies needs. Does not feel she is ready for dc as her roommate is gone during the day. I encouraged her to have her friends call and check in on her. Pt is able to walk to the bathroom, feed herself, toilet herself. She is concerned about being alone during the day. Explained the IMM letter and pt signed. She does not want to appeal her dc.
[2024-08-07] MEDS ORDERED: BUDESONIDE 0.5 MG/2 ML VIAL INH SCH (08:00)
--- NOTE | 2024-08-07 08:32 | NUR ---
PATIENT IN BED AT THIS TIME. DIGITAL PRE PRESS OPERATOR DID PATIENTS HOURLY ROUNDS. CALL LIGHT WITHIN REACH, NO FURTHER NEEDS AT THIS TIME.
[2024-08-07] MEDS ORDERED: CEFUROXIME500 MG PO ×2 (10:26)
[2024-08-07] MEDS ORDERED: ROBITUSSIN COU1 EACH PO ×2 (10:27)
[2024-08-07] MEDS ORDERED: GUAIFENESIN/CODEINE 5 ML UDC PO PRN (10:45)
[2024-08-07] MEDS ORDERED: GUAIFENESIN 10 ML UNIT DOSE CUP PO ONE (11:00)
--- NOTE | 2024-08-07 13:16 | NUR ---
PT RESTING IN BED WITH EYES CLOSED AND RESPIRATIONS EVEN AND UNLABORED. CALL LIGHT WITHIN REACH.
[2024-08-07 13:35] VITALS: BP 125/69
--- NOTE | 2024-08-07 13:43 | NUR ---
PATIENT IN BED AT THIS TIME. PRODUCTION GEAR CUTTER CHARTED VITALS AND I&O'S. CALL LIGHT WITHIN REACH, NO FURTHER NEEDS AT THIS TIME.
--- NOTE | 2024-08-07 14:31 | NUR ---
PT NOT AVAILABLE FOR VISIT. PROVIDED PRAYER.
--- NOTE | 2024-08-07 14:41 | NUR ---
SPECIAL PROCEDURE TECHNOLOGIST REMOVED BOTH OF PATIETNS IV CATHETERS.
== END 2024-08-07 14:37 | disposition home or self-care (01) | DRG 871 ==
LOC: ED 13:15 → MS 15:26 → CCU 15:26 → MS 08-05 12:29
PROVIDERS: Emergency Medicine; ADMIT Family Medicine; ATTEND Family Medicine
PROC: 3E033XZ Introduction of Vasopressor into Peripheral Vein, Percutaneous Approach (ICD-10-PCS; principal; 2024-08-03)
PROC: 3E03329 Introduction of Other Anti-infective into Peripheral Vein, Percutaneous Approach (ICD-10-PCS; 2024-08-03)
DX: A41.9 Sepsis, unspecified organism (principal); J18.9 Pneumonia, unspecified organism; R65.21 Severe sepsis with septic shock; N17.9 Acute kidney failure, unspecified; Z94.81 Bone marrow transplant status; F41.9 Anxiety disorder, unspecified; G47.00 Insomnia, unspecified; R19.7 Diarrhea, unspecified; F17.210 Nicotine dependence, cigarettes, uncomplicated; E87.6 Hypokalemia; E83.42 Hypomagnesemia; E83.39 Other disorders of phosphorus metabolism; Z88.8 Allergy status to other drugs, medicaments and biological substances; Z79.899 Other long term (current) drug therapy; Z90.49 Acquired absence of other specified parts of digestive tract; Z90.89 Acquired absence of other organs; Z98.890 Other specified postprocedural states
CPT/HCPCS: 36415; 71045; 80048; 80053; 81001; 83605; 83735; 84100; 85025; 94640; 94667; 94668; 94760; A9270; A9270-GY; J0456; J0696; J1650; J2405; J3475; J3480; J7030; J7060; J7121